=== PATIENT | male | born 1950 | race Two or more races ===

== ENCOUNTER 2023-04-14 19:29 | Inpatient (IN) | payer OTHER ==
[~2023-04-14] VITALS: Ht 182.9 cm; Wt 78.0 kg
[2023-04-14 19:59] LABS: Basophils # (auto) 0 10 ^3/uL (0-0.2); Basophils % (auto) 0.5 % (0.0-2.0); Eosinophils # (auto) 0.1 10 ^3/uL (0-0.8); Eosinophils % (auto) 1.2 % (0.0-7.0); Hematocrit 48.1 % (41.0-53.0); Hemoglobin 16.2 g/dL (13.5-17.5); Lymphocytes # (auto) 2.2 10 ^3/uL (0.4-5.4); Lymphocytes % (auto) 23.9 % (10.0-50.0); Mean Corpuscular Hemoglobin 31.2 pg (28.0-32.0); Mean Corpuscular Hgb Conc. 33.7 g/dL (32.0-36.0); Mean Corpuscular Volume 92.5 fL (80.0-100.0); Monocytes # (auto) 0.9 10 ^3/uL (0-1.3); Monocytes % (auto) 9.3 % (0.0-12.0); Neutrophils # (auto) 6.1 10 ^3/uL (1.6-8.6); Neutrophils % (auto) 65.1 % (37.0-80.0); Nucleated Red Blood Cells % 0.1 %; Red Blood Cells 5.19 10^6/uL (4.5-5.90); White Blood Cell 9.4 10^3/uL (4.4-10.8)
[2023-04-14 20:13] VITALS: PULSE 87; RESP 31; O2SAT 90
[2023-04-14 20:18] LABS: INR 1.04 (0.9-1.15); Prothrombin Time 10.9 sec (9.3-11.8)
[2023-04-14 20:19] LABS: Alanine Aminotransferase 24 U/L (16-61); Albumin 4.1 g/dL (3.4-5.0); Anion Gap 7 (5-15); Blood Alcohol < 3.0 mg/dL (<10); Blood Urea Nitrogen 17 mg/dL (7-18); Calcium 9.2 mg/dL (8.5-10.1); Carbon Dioxide 24 mmol/L (21-32); Chloride 111 mmol/L (98-107); Glucose 107 mg/dL (74-106); Magnesium 2.7 mg/dL (1.6-2.6); Potassium 3.7 mmol/L (3.5-5.1); Sodium 142 mmol/L (136-145)
[2023-04-14 20:22] LABS: Alkaline Phosphatase 89 U/L (45-117); Aspartate Aminotransferase 14 U/L (15-37); BUN/Creatinine Ratio 10.2 (10.0-20.0); Bilirubin, Total 0.7 mg/dL (0.2-1.0); GFR African American 52 mL/min; GFR Non-African American 43 mL/min; Total Protein 7.2 g/dL (6.4-8.2)
[2023-04-14] MEDS ORDERED: IOHEXOL 350 MG/ML 100ML IJ ONE (21:19)
[2023-04-14] MEDS ORDERED: ASPirin 81 mg TAB PO ONE (21:30)
[2023-04-14 22:32] LABS: Urine Bacteria NONE SEEN /hpf (None Seen); Urine Blood Negative /uL (Negative); Urine Clarity Clear (Clear); Urine Color Colorless (Yellow); Urine Protein, UAD Negative (Negative); Urine Specific Gravity 1.028 (1.001-1.035); Urine Urobilinogen Normal (Negative); Urine WBC 2 /hpf (0 - 3); Urine pH 6.5 (5.0-8.0)
[2023-04-14 22:48] LABS: Alcohol, Urine < 3.0 mg/dL (0-10); Amphetamine Screen, Urine POSITIVE (NEGATIVE); Barbiturate Scree,Urine NEGATIVE (NEGATIVE); Benzodiazephine Screen, Urine NEGATIVE (NEGATIVE); Cannabinoid Screen, Urine POSITIVE (NEGATIVE)
[2023-04-14 22:56] LABS: Cocaine Screen, Urine NEGATIVE (NEGATIVE); Opiate Scree,Urine NEGATIVE (NEGATIVE); Phencyclidine Screen, Urine NEGATIVE (NEGATIVE)
[2023-04-14] MEDS ORDERED: ALTEPLASE (RECOMBINANT) 100 MG in STERILE WATER 100 ML IV ONE (23:00)
[2023-04-14] MEDS ORDERED: ALTEPLASE (RECOMBINANT) 100 MG ONE (23:05)
[2023-04-14] MEDS ORDERED: SODIUM CHLORIDE 0.9% 1,000 ML IV SCH (23:15)
[2023-04-15] MEDS ORDERED: ACETAMINOPHEN 325 MG TAB PO PRN
[2023-04-15] MEDS ORDERED: DOCUSATE SOD 100 MG CAP PO PRN
[2023-04-15] MEDS ORDERED: HYDROcodone-ACET 5/325MG TAB PO PRN
[2023-04-15] MEDS ORDERED: ONDANSETRON HCL 4 MG/2 ML VIAL IV PRN
[2023-04-15] MEDS ORDERED: NITROGLYCERIN 0.4 MG SL TAB SL PRN
[2023-04-15] MEDS ORDERED: MORPHINE SULFATE INJ 2 MG/ml SYRG IV PRN
[2023-04-15] MEDS ORDERED: hydrALAZINE HCL 20 MG/ML VL IV PRN (05:15)
[2023-04-15] MEDS ORDERED: hydrALAZINE HCL 20 MG/ML VL ONE (05:16)
[2023-04-15] MEDS ORDERED: ETOMIDATE (2MG/ML) 20ML VIAL IV ONE ×2 (05:22→05:30)
[2023-04-15] MEDS ORDERED: ROCURONIUM 10MG/ML 10ML VIAL IV ONE ×2 (05:22→05:30)
[2023-04-15] MEDS ORDERED: PROPOFOL 10 MG/ML 20 ML IV ONE (05:23)
[2023-04-15] MEDS ORDERED: MIDAZOLAM DRIP 50 mg/50mL 50 ML IV ONE (05:25)
[2023-04-15] MEDS ORDERED: levETIRAcetam 500 MG/5ML INJ IV ONE (05:25)
[2023-04-15] MEDS ORDERED: PROPOFOL 100 ML IV ONE (05:27)
[2023-04-15 05:30] VITALS: BP 168/76; PULSE 83; RESP 24; O2SAT 100
[2023-04-15] MEDS ORDERED: MIDAZOLAM DRIP 50 mg/50mL 50 ML IV SCH (05:30)
[2023-04-15] MEDS ORDERED: PROPOFOL 100 ML IV SCH (05:30)
[2023-04-15] MEDS ORDERED: SODIUM CHLOR 0.9% PF (SALINE LOCK) 10ML VIAL/SYR IV SCH (06:00)
[2023-04-15 06:15] LABS: Basophils # (auto) 0.1 10 ^3/uL (0-0.2); Basophils % (auto) 0.4 % (0.0-2.0); Eosinophils # (auto) 0.1 10 ^3/uL (0-0.8); Eosinophils % (auto) 0.9 % (0.0-7.0); Hematocrit 51.9 % (41.0-53.0); Lymphocytes # (auto) 2.1 10 ^3/uL (0.4-5.4); Lymphocytes % (auto) 13.5 % (10.0-50.0); Mean Corpuscular Hemoglobin 31.4 pg (28.0-32.0); Mean Corpuscular Hgb Conc. 32.8 g/dL (32.0-36.0); Mean Corpuscular Volume 95.7 fL (80.0-100.0); Monocytes # (auto) 1.4 10 ^3/uL (0-1.3); Monocytes % (auto) 8.9 % (0.0-12.0); Neutrophils # (auto) 11.9 10 ^3/uL (1.6-8.6); Neutrophils % (auto) 76.3 % (37.0-80.0); Red Blood Cells 5.42 10^6/uL (4.5-5.90); Red Cell Distribution Width 14.4 % (11.8-14.3); White Blood Cell 15.6 10^3/uL (4.4-10.8)
[2023-04-15] MEDS ORDERED: MANNITOL 20% SOLN 100 gm/500ml 400 ML IV ONE (06:15)
[2023-04-15 06:16] VITALS: BP 183/87; PULSE 94; RESP 24; TEMP 98.2; O2SAT 97
[2023-04-15 06:48] LABS: Base Excess -2.9 mmol/L (-2.0-2.0)
[2023-04-15] MEDS ORDERED: MANNITOL 20 % (20GM/100ML) 500 ML IV ONE (07:09)
[2023-04-15 07:33] LABS: Potassium 4.2 mmol/L (3.5-5.1)
[2023-04-15 07:41] LABS: BUN/Creatinine Ratio 11.5 (10.0-20.0); Bilirubin, Total 0.9 mg/dL (0.2-1.0); Calcium 9.4 mg/dL (8.5-10.1); Total Protein 7.4 g/dL (6.4-8.2)
[2023-04-15 07:56] VITALS: PULSE 79; RESP 29; O2SAT 99
[2023-04-15 07:59] VITALS: BP 131/64; PULSE 81; RESP 33; O2SAT 98
[2023-04-15 08:15] VITALS: BP 118/68; PULSE 86; RESP 34; TEMP 97.4; O2SAT 99
[2023-04-15] MEDS ORDERED: ASPirin 81 mg TAB PO SCH (10:00)
[2023-04-15] MEDS ORDERED: ATORVASTATIN 20 MG TAB PO SCH (10:00)
[2023-04-15] MEDS ORDERED: amLODIPine BESYLATE 5 MG TAB PO SCH (10:00)
== END 2023-04-15 08:46 | disposition short-term general hospital (02) | DRG 64 ==
LOC: ER 19:31 → TELE 23:57
PROVIDERS: ADMIT Internal Medicine; ATTEND Internal Medicine
DX: I60.9 Nontraumatic subarachnoid hemorrhage, unspecified (principal); G93.5 Compression of brain; G81.91 Hemiplegia, unspecified affecting right dominant side; N17.9 Acute kidney failure, unspecified; R47.01 Aphasia; R40.20 Unspecified coma; I61.9 Nontraumatic intracerebral hemorrhage, unspecified; R73.9 Hyperglycemia, unspecified; I16.0 Hypertensive urgency; D72.829 Elevated white blood cell count, unspecified; F17.200 Nicotine dependence, unspecified, uncomplicated; Z79.82 Long term (current) use of aspirin; Z79.899 Other long term (current) drug therapy; Z82.3 Family history of stroke; Z82.49 Family history of ischemic heart disease and other diseases of the circulatory system; T45.615A Adverse effect of thrombolytic drugs, initial encounter
CPT/HCPCS: 36415; 36600; 70450; 70496; 71045; 80053; 80307; 80320; 81001; 82805; 82962; 83735; 84484; 85025; 85610; 85730; 87070; 87205; 93005; 94002; G0378; J2250; J2704; J7060